=== PATIENT | male | born 1970 | race Caucasian/White ===

== ENCOUNTER → 2018-03-18 | Emergency (ER) | payer SELFPAY ==
[2018-03-18 21:41] VITALS: BP 117/95
== END | disposition home or self-care (01) ==
LOC: CANPREER → ED 20:34
DX: T22.212A Burn of second degree of left forearm, initial encounter (principal); X58.XXXA Exposure to other specified factors, initial encounter; Y92.9 Unspecified place or not applicable; Y93.9 Activity, unspecified; Y99.9 Unspecified external cause status; Z04.2 Encounter for examination and observation following work accident
CPT/HCPCS: 99282